=== PATIENT | male | born 2000 | race Two or more races ===

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

== ENCOUNTER 2021-03-26 09:13 | Outpatient (REF) | payer OTHER, SELFPAY ==
[2021-03-26 10:34] LABS: Anion Gap 12 (12-20); Blood Urea Nitrogen 12 mg/dL (9-16); Calcium 9.9 mg/dL (8.4-10.2); Carbon Dioxide 25 mmol/L (22-29); Chloride 104 mmol/L (96-108); Estimated Glomerular Filt Rate > 60; Glucose Random 122 mg/dL (60-115); Potassium 4.2 mmol/L (3.3-5.1); Sodium 137 mmol/L (135-145)
[2021-03-26 11:17] LABS: Erythrocyte Sedimentation Rate 2 MM/HR (0-15)
[2021-04-04 18:56] LABS: Acetylcholine Recep Modulating 15
[2021-04-04 23:41] LABS: Acetylcholine Receptor Binding <0.30 nmol/L
== END 2021-03-26 09:14 | disposition home or self-care (01) ==
LOC: HO.LAB 09:13
PROVIDERS: Visit Provider Psychiatry & Neurology Neurology
DX: H02.409 Unspecified ptosis of unspecified eyelid (principal)
CPT/HCPCS: 36415; 80048; 82550; 83519; 85652

== ENCOUNTER 2021-03-26 09:15 | Outpatient (REF) | payer OTHER, SELFPAY | END 2021-03-26 09:16 | disposition home or self-care (01) | LOC: HO.LAB 09:15 | PROVIDERS: Visit Provider Internal Medicine | DX: Z20.822 Contact with and (suspected) exposure to COVID-19 (principal) | CPT/HCPCS: C9803; U0003; U0005 ==

== ENCOUNTER 2021-04-01 14:17 | Outpatient (REF) | payer OTHER, SELFPAY ==
--- NOTE | ~2021-04-01 | MR_ITS ---
EXAMINATION: MRI OF THE BRAIN WITHOUT CONTRAST CLINICAL INFORMATION: Proptosis eyelid. Assess for 3rd nerve lesion. COMPARISON: There are no prior studies available for comparison. TECHNIQUE: MRI of the brain was obtained using routine sequences without contrast. FINDINGS: The 7th and 8th cranial nerve complexes are normal in course and caliber. Fluid signal is preserved within the cochleae, semicircular canals, and vestibules on the high-resolution axial FIESTA sequence. No cerebellopontine angle lesion is noted. The FIESTA sequence does not fully include the 3rd cranial nerves. No diffusion abnormalities are identified to suggest an acute or subacute infarct. No mass effect or midline shift is seen. The ventricles are normal in size. Brain parenchymal signal appears normal. No extra-axial fluid collections are seen. The brainstem and cerebellum are normal. No pathologic magnetic susceptibility artifact is identified on the gradient refocused acquisition. The craniovertebral junction, marrow signal, and midline structures are normal. The major intracranial flow-voids at the level of the [place] are preserved. The dural venous sinus flow-voids are maintained. The mastoid air cells and paranasal sinuses are well-aerated. MR/MR head/brain wo con IMPRESSION: 1. There are no acute bleeds or infarcts. No masses are demonstrated. 2. The thin FIESTA images do not fully include the 3rd cranial nerves. The patient will be recalled for repeat imaging to include these structures.
== END 2021-04-01 14:18 | disposition home or self-care (01) ==
LOC: HO.MRI 14:17
PROVIDERS: Visit Provider Psychiatry & Neurology Neurology
DX: H02.409 Unspecified ptosis of unspecified eyelid (principal)
CPT/HCPCS: 70551

== ENCOUNTER 2021-04-11 15:54 | Outpatient (REF) | payer OTHER, SELFPAY | END 2021-04-11 15:55 | disposition home or self-care (01) | LOC: HO.MRI 15:54 | PROVIDERS: Visit Provider Psychiatry & Neurology Neurology | DX: Z13.89 Encounter for screening for other disorder (principal) ==